=== PATIENT | male | born 1945 | race Caucasian/White ===

== ENCOUNTER → 2018-11-24 08:44 | Outpatient (CLI) | payer MEDICARE, BC, SELFPAY ==
--- NOTE | 2018-11-24 08:52 | XR_ITS ---
XR elbow LT min 3V COMPARISON: None HISTORY: Pain swelling left elbow TECHNIQUE: AP lateral and oblique views FINDINGS: There is prominent focal soft tissue swelling of the olecranon bursa. There is no acute fracture and there is no abnormal fat pad sign. There are minor posttraumatic changes of the medial and lateral epicondyles of the humerus. IMPRESSION: Findings of olecranon bursitis, no acute fracture seen.
== END ==
PROVIDERS: PCP Internal Medicine Adolescent Medicine; Visit Provider Orthopaedic Surgery
DX: M25.522 Pain in left elbow (principal)
CPT/HCPCS: 73080

== ENCOUNTER → 2021-01-26 13:08 | Outpatient (CLI) | payer MEDICARE, BC, SELFPAY ==
[2021-01-26 13:33] LABS: Basophils % 0.8 % (0.1-2.0); Eosinophils # 0.2 K/mm3 (0.0-0.4); Eosinophils % 3.8 % (0.1-12.0); Hemoglobin 15.5 g/dL (14.1-18.0); Lymphocytes # 1.5 K/mm3 (0.7-4.5); Lymphocytes % 29.1 % (10-50); Mean Corpuscular HGB Conc 31.7 g/dL (31.8-35.4); Mean Corpuscular Hemoglobin 30.5 pg (27.0-31.2); Mean Corpuscular Volume 96.5 fl (80-94); Mean Platelet Volume 7.7 fl (7.4-10.4); Monocytes # 0.4 K/mm3 (0.1-1.0); Monocytes % 8.2 % (1.7-9.3); Neutrophils % 58.2 % (37.0-80.0); Platelet Count 173 K/mm3 (142-424); Red Blood Count 5.08 M/mm3 (4.60-6.20); Red Cell Distribution Width 14.7 % (11.5-17.5); White Blood Count 5.2 K/mm3 (4.8-10.8)
[2021-01-26 13:42] LABS: Hemoglobin A1C 5.8 % (4.0-6.0)
[2021-01-26 14:39] LABS: Alanine Aminotransferase 12 U/L (12-78); Albumin/Globulin Ratio 1.7 (1.1-1.8); Alkaline Phosphatase 39 U/L (38-126); Anion Gap 11.2 mEq/L (5-15); Aspartate Amino Transferase 25 U/L (17-59); Bilirubin,Total 0.9 mg/dl (0.2-1.3); Blood Urea Nitrogen 14 mg/dl (9-20); Calcium 9.2 mg/dl (8.4-10.2); Carbon Dioxide 30 mmol/L (22.0-30.0); Chloride 101 mmol/L (98-107); Chol/HDL Ratio 1.2 (1-3.5); Cholesterol 110 mg/dl (140-200); Estimated Glomerular Filt Rate 73 ml/min (>60); GFR (African American) 89 ML/MIN (>60); Globulin 2.3 g/dL (1.3-3.2); Glucose 75 mg/dl (74-100); HDL Cholesterol 95 mg/dl (40-60); Potassium 5.2 mmoL/L (3.5-5.1); Sodium 137 mmol/L (136-145); Total Protein,Serum 6.3 g/dl (6.3-8.2); Triglycerides 26 mg/dl (30-150); VLDL Cholesterol 5 mg/dL (0-40)
[2021-01-26 15:04] LABS: Direct LDL Cholesterol < 30.00 mg/dL (100-129)
[2021-01-27 11:52] LABS: Testosterone,Total 690 ng/dL (264-916)
== END ==
PROVIDERS: Visit Provider Internal Medicine Adolescent Medicine
DX: E11.69 Type 2 diabetes mellitus with other specified complication (principal); E11.9 Type 2 diabetes mellitus without complications; E29.1 Testicular hypofunction; Z79.84 Long term (current) use of oral hypoglycemic drugs
CPT/HCPCS: 36415; 80053; 80061; 83036; 84403; 85025

== ENCOUNTER 2023-09-30 08:24 | Outpatient (CLI) | payer MEDICARE, BC, SELFPAY ==
--- NOTE | 2023-09-30 08:28 | CA_ITS ---
FINAL REPORT TECHNIQUE: Color Doppler, duplex Doppler and page scale sonography of the bilateral neck arterial vasculature was performed. Velocities were measured in the carotid arteries. Stenosis evaluation based on the validated velocity criteria. CLINICAL HISTORY: HTN, HLD, DM, Dizziness COMPARISON: None FINDINGS: The peak systolic velocity of the right common carotid artery is 114 cm/s. The peak systolic velocity of the right internal carotid artery is 107 cm/s and end diastolic velocity 19 cm/s. The ICA/CCA ratio is 1. 6 7. A minimal amount of plaque is present. The right external carotid artery is patent. The right vertebral artery is patent with antegrade flow. The peak systolic velocity of the left common carotid artery is 126 cm/s. The peak systolic velocity of the left internal carotid artery is 69 cm/s and end diastolic velocity 15 cm/s. The ICA/CCA ratio is 0.55. A minimal amount of plaque is present. The left external carotid artery is patent.The left vertebral artery is patent with antegrade flow. IMPRESSION: No evidence of bilateral carotid stenosis. Bilateral patent vertebral arteries with antegrade flow. If indicated, CTA or MRA could further evaluate. Reviewed, Interpreted and Dictated by Panda Jarrell MD Transcribed by Светлана Hassan Authenticated and [facility]
== END 2023-09-30 23:59 | disposition home or self-care (01) ==
LOC: RT 08:24
PROVIDERS: PCP Internal Medicine Adolescent Medicine; Visit Provider Internal Medicine Adolescent Medicine
DX: R55 Syncope and collapse (principal); R26.9 Unspecified abnormalities of gait and mobility
CPT/HCPCS: 93880; 95819

== ENCOUNTER 2023-10-06 09:22 | Day surgery (SDC) | payer MEDICARE, BC, SELFPAY ==
[2023-10-03 14:57] VITALS: BMI 29.2
[2023-10-06 09:41] VITALS: BP 162/87; PULSE 59; RESP 18; TEMP 36.4; O2SAT 97
[2023-10-06] MEDS: LACTATED RINGERS 1000ML 1,000 ML 25 ML IV (09:53)
[2023-10-06 09:55] LABS: POC Glucose,Bedside 82 (70-110)
--- NOTE | 2023-10-06 10:06 | EXP.GEN.HP ---
HPI HPI HPI: Patient is a 78-year-old male who presents for colonoscopy. Primary care provider is Dr. Prashant Townsend. He has had some symptoms of obstipation with bowel irregularity. He has had sensation of incomplete defecation. He has had some audible bowel sounds and passage of gas without warning. He has undergone prior colonoscopy with Audie Nichols on 03/06/2018. He does have a family history of colon cancer in his father at age 84. Colon[address] Nichols in 2018 revealed a diminutive rectal polyp. 5-year follow-up colonoscopy was recommended. . PFSH [facility] Disclaimer: The information contained in this section may have been updated after the patient was seen, as this information can be updated by other users. Medical History (Updated 10/06/23 @ 10:15 by Obie Salgado MD) Diabetes Hyperlipidemia Hypertension Surgical History (Updated 10/06/23 @ 09:58 by Susu Tang RN) History of knee replacement History of colonoscopy Family History (Updated 10/06/23 @ 09:52 by Susu Tang RN) Diabetes Social History (Updated 10/06/23 @ 09:53 by Susu Tang RN) Smoking Status: Never smoker alcohol intake: current alcohol intake frequency: a few times a week substance use type: denies use current occupational status: retired Travel in the last 8 weeks: None caffeine: Yes Review of Systems Review of Systems Review of systems:: pertinent systems reviewed and negative unless documented below Meds Home Medications and Allergies Home Medications Medication Instructions Recorded Confirmed Type cyanocobalamin 2 mg-levomefolate 1 each PO DAILY Supplement 03/01/18 10/06/23 History john 1.13 mg-pyridoxine 25 mg tablet fenofibrate nanocrystallized 145 145 mg PO DAILY Cholesterol 03/01/18 10/06/23 History mg tablet losartan 50 mg tablet 50 mg PO DAILY bp 03/01/18 10/06/23 History aspirin 325 mg tablet 81 mg PO DAILY prevent 03/06/18 10/06/23 History carvedilol 12.5 mg tablet 12.5 mg PO BID 11/24/18 10/06/23 History gabapentin 300 mg capsule 300 mg PO DAILY 11/24/18 10/06/23 History lovastatin 40 mg tablet 40 mg PO DAILY 11/24/18 10/06/23 History metformin 1,000 mg tablet 1,000 mg PO DAILY 11/24/18 10/06/23 History testosterone 30 mg/actuation (1.5 4 pump transdermal DAILY 11/24/18 History mL) transderm solution metered pump sod picosulf 10 mg-magnes 3.5 175 ml PO DAILY 2 doses #350 mL 07/01/23 Rx gram-citric 12 gram/175 mL oral solution (Clenpiq) New Prescriptions to Start Prescriptions: Allergies Allergy/AdvReac Type Severity Reaction Status Date / Time No Known Allergies Allergy Verified 10/06/23 09:37 Exam Data for Last 24 hours Vital signs and Labs for Last 24 Hours: Temp Pulse Resp BP Pulse Ox O2 Del Method 97.5 F L 59 L 18 162/87 H 97 Room Air 10/06/23 09:41 10/06/23 09:41 10/06/23 09:41 10/06/23 09:41 10/06/23 09:41 10/06/23 09:41 Laboratory Results - last 24 hr 10/06/23 09:46: POC Glucose 82 I & O for Last 24 hours: Intake & Output 10/03/23 10/04/23 10/05/23 10/06/23 11:59 11:59 11:59 11:59 Weight 210 lb *Routine HEENT Exam Head: Present normocephalic Eye: Present EOMI ENT: Present mucous membranes moist *Routine Neck Exam Neck: Present supple *Routine Respiratory Exam Respiratory: Present CTA bilaterally; Absent respiratory distress *Routine Cardiovascular Exam Cardiovascular: Present RRR *Routine Abdominal Exam Abdominal: Present soft *Routine Rectal Exam Rectal:: deferred *Routine Genitalia Exam Genitalia:: deferred Results Results Lab Results Last 24 Hours:: Laboratory Results - last 24 hr 10/06/23 09:46: POC Glucose 82 Assessment and Plan *Assessment and plan (1) Rectal pressure: Status: Acute Category: Medical Code(s): R19.8 - Other specified symptoms and signs involving the digestive system and abdomen Plan Plan to proceed with colonoscopy
--- NOTE | 2023-10-06 10:13 | EXP.ANES.CKL ---
[facility] Disclaimer: The information contained in this section may have been updated after the patient was seen, as this information can be updated by other users. Medical History (Updated 10/06/23 @ 10:09 by Obie Salgado MD) Diabetes Hyperlipidemia Hypertension Surgical History (Updated 10/06/23 @ 09:58 by Susu Tang, CYNTHIA) History of knee replacement History of colonoscopy Family History (Updated 10/06/23 @ 09:52 by Susu Tang RN) Other Diabetes Social History (Updated 10/06/23 @ 09:53 by Susu Tang RN) Smoking Status: Never smoker alcohol intake: current alcohol intake frequency: a few times a week substance use type: denies use current occupational status: retired Travel in the last 8 weeks: None caffeine: Yes [facility] Anesthesia Checklist Patient Identification Patient Identification: Verbal (Name & ) Structural Data Admitted From: Home Planned Operative Procedure/s: colonoscopy Consent for Planned Operative Procedure(s) Verified: Yes Additional verifications Anesthesia Reactions: No Airway Assessment Mallampati Score:: Class II C-Spine Mobility Assessed: Yes TMJ Mobility Assessed: Yes Dentition: Good Dentition Neurological Assessment Level of Consciousness: Awake, Alert and Appropriate Anesthesia Plan Anesthesia Risk discussed: Yes Anesthesia Plan: Verified ASA Class: II Anesthesia Type: MAC
--- NOTE | 2023-10-06 11:04 | P.PCN_ITS ---
Procedure: Date: 10/06/23 Patient Date of :: 1945 Procedure Performed:: Total colonoscopy to terminal ileum with polypectomy using biopsy forceps and snare Indications:: Patient is a 78-year-old male who presents for colonoscopy. Primary care provider is Dr. Prashant Townsend. He has had some symptoms of obstipation with bowel irregularity. He has had sensation of incomplete defecation. He has had some audible bowel sounds and passage of gas without warning. He has undergone prior colonoscopy with Audie Nichols on 03/06/2018. He does have a family history of colon cancer in his father at age 84. Colon[address] Nichols in 2018 revealed a diminutive rectal polyp. 5-year follow-up colonoscopy was recommended. . Performing Provider:: Obie Salgado MD Referring Provider:: Prashant Townsend MD . Sedation:: MAC sedation . Procedure:: Patient history was obtained and appropriate physical examination was performed. Patient's medications and allergies were reviewed. Informed consent was ob tained after explaining the benefits, alternatives, and risks of the procedure including, but not limited to, bleeding, perforation, missed lesions, and adverse reaction to anesthesia medications. Patient was transported to endoscopy procedure room. Patient was connected to monitoring devices. Throughout the procedure the patient's blood pressure, pulse, and oxygen saturations were monitored continuously. Patient identification and planned procedure were verified by the staff. Patient was positioned in lateral decubitus position. Digital anorectal exam was performed. Variable stiffness Olympus colonoscope was inserted and advanced under direct visualization to the cecum. Adequacy of the colonic preparation was noted. The colonoscope was advanced a short distance into the terminal ileum. The colonoscope was then slowly withdrawn while carefully examining the color, texture, anatomy, and integrity of the mucosoa circumferentially. Within the rectum retroflexion was performed. Colonoscope was then withdrawn. Impression: Colonoscope was advanced to the cecum. There was particulate stool throughout the colon and high-volume irrigation and suctioning was performed to allow for adequate visualization. There were some unabsorbed medication tablets in the right colon. Colonoscope was advanced a generous distance into the ileum which appeared normal. Colonoscope was slowly withdrawn through the colon with careful surveillance. At the hepatic flexure there were a couple of tiny diminutive polyps removed with biopsy forceps. Distal transverse colon there was a small diminutive possible polyp which was rather subtle removed with biopsy forceps. In the descending colon there was a sessile adenomatous lesion removed with cold biopsy forceps. There were few sigmoid diverticuli. There were several possibly inverted diverticuli in the sigmoid colon. Limited biopsy was obtained 1 of these labeled sigmoid colon biopsy. Colonoscope was withdrawn. . Findings:: Fair preparation Diminutive polyp x 2 at the hepatic flexure removed with biopsy forceps. Possible distal transverse colon polyp removed with biopsy forceps Sessile adenomatous polyp in the descending colon removed with cold snare Tiny hyperplastic appearing polyp versus inverted diverticulum biopsied with cold biopsy forceps . Recommendations:: Repeat colonoscopy pending pathology, given family history and suboptimal preparation likely 2 or 3 years. Etiology of the patient's symptoms may be functional. May benefit from digestive health/gastroenterology evaluation. Complications:: None immediately apparent Estimated blood obtained (mL): 2 Colonoscopy Component Colonoscopy Component Was a colonoscopy performed during today's procedure?: Yes Recommended follow up colonoscopy of at least 10 years?: No If no, follow up colonoscopy recommended in ___ years?: See above Reason for not recommending >/= 10 yr follow-up interval?: See above
[2023-10-06 11:05] VITALS: BP 94/51; PULSE 58; RESP 18; TEMP 36.4; O2SAT 92
[2023-10-06 11:15] VITALS: BP 105/59; PULSE 56; RESP 18; O2SAT 97
[2023-10-06 11:25] VITALS: BP 114/67; PULSE 61; RESP 18; O2SAT 100
[2023-10-06 11:35] VITALS: BP 123/71; PULSE 59; RESP 18; O2SAT 99
[2023-10-06 11:39] VITALS: BP 133/84; PULSE 53; RESP 18; O2SAT 97
== END 2023-10-06 11:51 | disposition home or self-care (01) ==
PROVIDERS: PCP Internal Medicine Adolescent Medicine; Visit Provider Surgery
PROC: 0DJD8ZZ Inspection of Lower Intestinal Tract, Via Natural or Artificial Opening Endoscopic (ICD-10-PCS; CPT 45380; principal; 2023-10-06 10:30)
DX: R19.8 Other specified symptoms and signs involving the digestive system and abdomen (principal); Z12.11 Encounter for screening for malignant neoplasm of colon; Z86.010 Personal history of colon polyps; D12.4 Benign neoplasm of descending colon; K63.5 Polyp of colon; R19.15 Other abnormal bowel sounds; R15.0 Incomplete defecation
CPT/HCPCS: 45380; 45385; 82962; J2704

== ENCOUNTER 2023-10-07 13:34 | Outpatient (CLI) | payer MEDICARE, BC, SELFPAY ==
--- NOTE | 2023-10-07 13:37 | MR_ITS ---
FINAL REPORT CLINICAL HISTORY: RECURRENT SYNCOPE COMPARISON: None FINDINGS: Multi planar MR imaging was obtained through the brain without contrast. The midline structures appear intact. There is no evidence of Chiari malformation. On T2 and flair axial images there are minimal foci of increased signal in the deep white matter, consistent with mild changes of ischemic microvascular disease. On diffusion-weighted images there is no evidence of restricted diffusion. The visualized paranasal sinuses reveal mild chronic right maxillary soft tissue thickening consistent with chronic sinusitis. The seventh and eighth nerve root complexes are intact. IMPRESSION: Mild changes of ischemic microvascular disease. No acute intracranial abnormalities identified. Reviewed, Interpreted and Dictated by Panda Jarrell MD Transcribed by Cadence Rodriguez Authenticated and [facility]
== END 2023-10-07 23:59 | disposition home or self-care (01) ==
LOC: RAD 13:35
PROVIDERS: PCP Internal Medicine Adolescent Medicine; Visit Provider Internal Medicine Adolescent Medicine
DX: R55 Syncope and collapse (principal); R26.9 Unspecified abnormalities of gait and mobility
CPT/HCPCS: 70551